=== PATIENT | male | born 1950 | race Caucasian/White ===

== ENCOUNTER → 2016-08-12 | Outpatient (REF) | payer OTHER ==
[~2016-08-12] MED LIST: /WARF5TA PO; CENTTAB47 PO; COUM7.5T PO; OMEP40CA2 PO; PERC7.5T12 PO; RAMI5CAP PO; SIMV40TA2 PO; TYLE325T5 PO
[2016-08-13 10:57] LABS: PRETREATED FOLATE FOR RBCFOL 7.7 NG/ML
== END ==
LOC: M LAB REF 13:11
PROVIDERS: ATTEND Nurse Practitioner Adult Health
DX: E83.110 Hereditary hemochromatosis (principal); K75.81 Nonalcoholic steatohepatitis (NASH)

== ENCOUNTER 2018-02-23 11:12 | Day surgery (SDC) | payer BC, OTHER ==
[2018-02-23] MEDS: NS 1,000 ML IV (06:00)
[2018-02-23] MEDS ORDERED: PROPOFOL 200 MG/20 ML VIAL As Ordered ×2 (11:50)
[2018-02-23] MEDS ORDERED: LIDOCAINE 2% INJ 100 MG/5 ML SDV (FOR ANES.) As Ordered (11:50)
== END 2018-02-23 13:14 | disposition home or self-care (01) ==
LOC: M OPP 11:12
DX: Z12.11 Encounter for screening for malignant neoplasm of colon (principal); Z86.010 Personal history of colon polyps; K64.0 First degree hemorrhoids; K57.30 Diverticulosis of large intestine without perforation or abscess without bleeding; R12 Heartburn; K22.8 Other specified diseases of esophagus; K44.9 Diaphragmatic hernia without obstruction or gangrene; I10 Essential (primary) hypertension; E78.00 Pure hypercholesterolemia, unspecified; R73.03 Prediabetes; K21.9 Gastro-esophageal reflux disease without esophagitis; M19.90 Unspecified osteoarthritis, unspecified site; Z96.643 Presence of artificial hip joint, bilateral; Z91.048 Other nonmedicinal substance allergy status; Z79.84 Long term (current) use of oral hypoglycemic drugs; Z79.899 Other long term (current) drug therapy; Z80.0 Family history of malignant neoplasm of digestive organs; Z87.891 Personal history of nicotine dependence
CPT/HCPCS: G0105

== ENCOUNTER 2018-04-22 07:26 | Day surgery (SDC) | payer BC, OTHER ==
[~2018-04-22] VITALS: Ht 177.8 cm; Wt 113.4 kg
[~2018-04-22 07:26] MED LIST changes: +LIVA1TAB PO; +METF500T13 PO; +METO1TAB7 PO; +NS 1,000 ML IV ONE; +RAMI1CAP24 PO
[2018-04-22] MEDS ORDERED: PROPOFOL 200 MG/20 ML VIAL As Ordered ONE (08:35)
[2018-04-22] MEDS ORDERED: LIDOCAINE 2% INJ 100 MG/5 ML SDV (FOR ANES.) As Ordered ONE (08:35)
[2018-04-22] MEDS ORDERED: fentaNYL 100 MCG/2 ML INJECTION (J3010) As Ordered ONE (08:36)
--- NOTE | 2018-04-22 09:03 | ROOR ---
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 Procedure: Pre-Anesthesia Assessment: - The heart rate, respiratory rate, oxygen saturations, blood pressure, adequacy of pulmonary ventilation, and response to care were monitored throughout the procedure. The Endoscope was introduced through the mouth, and advanced to the second part of duodenum. The upper GI endoscopy was accomplished without difficulty. The patient tolerated the procedure well. Findings: The Z-line was irregular and was found 40 cm from the incisors. Focal radiofrequency ablation of Gabriel's esophagus was performed. With the endoscope in place, the position and extent of the Gabriel's mucosa and the anatomic landmarks including proximal and distal extent of Gabriel's mucosa were noted. Endoscopic visualization identified an ablation site including the entire visible Gabriel's segment. Gastric contents were suctioned. The endoscope was then removed from the patient. The Barrx-90 Ultra radiofrequency ablation catheter was attached to the tip of the endoscope. The endoscope with the attached radiofrequency ablation catheter was then passed transorally under direct vision into the esophagus and advanced to the areas of Gabriel's mucosa. The areas included circumferential areas of Gabriel's mucosa. The radiofrequency ablation catheter was placed in contact with the surface of the Gabriel's mucosa under direct visualization and energy was applied twice at 10 J/cm2. Ablation was repeated in a likewise fashion to all visible Gabriel's mucosa. The ablation zone was cleaned of coagulative debris. A second round of ablation was then performed. Energy was applied twice at 12 J/cm2 to retreat the areas of Gabriel's epithelium that had been treated with the first series of ablation. The areas of the esophagus where Gabriel's mucosa had been ablated were examined. Areas of visible Gabriel's esophagus were completely ablated. A medium-sized hiatal hernia was present. No other significant abnormalities were identified in a careful examination of the stomach. The exam of the duodenum was otherwise normal. Impression: - Z-line irregular, 40 cm from the incisors. Treated with radiofrequency ablation. - Medium-sized hiatal hernia. - No specimens collected. - The examination was otherwise normal. Recommendation: - Patient has a contact number available for emergencies. The signs and symptoms of potential delayed complications were discussed with the patient. Return to normal activities tomorrow. Written discharge instructions were provided to the patient. - Discharge patient to home. - Follow an antireflux regimen. - Full liquid diet for 2 days, then advance as tolerated to soft diet for 2 days. - Continue present medications. - Return to my office in 2 months. - The findings and recommendations were discussed with the patient's family. Bryan Menendez MD Bryan Menendez MD 04/22/2018 9:03:27 AM This report has been signed electronically. Number of Addenda: 0 Note Initiated On: 04/22/2018 8:40 AM Estimated Blood Loss: Estimated blood loss: none.
[2018-04-22 09:22] VITALS: BP 176/99
== END 2018-04-22 09:29 | disposition home or self-care (01) ==
LOC: M OPP 07:26
PROVIDERS: ATTEND Internal Medicine Gastroenterology
DX: K22.711 Barrett's esophagus with high grade dysplasia (principal); K22.8 Other specified diseases of esophagus; K44.9 Diaphragmatic hernia without obstruction or gangrene; I10 Essential (primary) hypertension; E11.9 Type 2 diabetes mellitus without complications; M12.9 Arthropathy, unspecified; Z79.84 Long term (current) use of oral hypoglycemic drugs; Z79.899 Other long term (current) drug therapy; Z91.048 Other nonmedicinal substance allergy status; Z96.643 Presence of artificial hip joint, bilateral
CPT/HCPCS: 43270; J3010

== ENCOUNTER 2018-07-08 10:25 | Day surgery (SDC) | payer BC, OTHER ==
[~2018-07-08] VITALS: Ht 177.8 cm; Wt 112.9 kg
[2018-07-08] MEDS ORDERED: LIDOCAINE 2% INJ 100 MG/5 ML SDV (FOR ANES.) As Ordered ONE (13:03)
[2018-07-08] MEDS ORDERED: PROPOFOL 200 MG/20 ML VIAL As Ordered ONE ×2 (13:03→13:25)
--- NOTE | 2018-07-08 13:31 | ROOR ---
Patient Name: Randal Duke Procedure Date: 07/08/2018 1:15 PM Date of : 1950 Age: 68 Room: [facility] Gender: Male Note Status: Finalized Procedure: Upper Endoscopy + Biopsies Indications: Follow-up of Gabriel's esophagus, Gabriel's high grade dysplasia Providers: Bryan Menendez MD Referring MD: Morenita Valadez NP Requesting Provider: Medicines: Monitored Anesthesia Care Complications: No immediate complications. Procedure: Pre-Anesthesia Assessment: - The heart rate, respiratory rate, oxygen saturations, blood pressure, adequacy of pulmonary ventilation, and response to care were monitored throughout the procedure. The Endoscope was introduced through the mouth, and advanced to the second part of duodenum. The upper GI endoscopy was accomplished without difficulty. The patient tolerated the procedure well. Findings: The Z-line was regular and was found 40 cm from the incisors. Multiple biopsies were obtained with cold forceps for evaluation to rule out Gabriel's Esophagus randomly at the gastroesophageal junction. A small hiatal hernia was present. No other significant abnormalities were identified in a careful examination of the stomach. The exam of the duodenum was otherwise normal. Impression: - Z-line regular, 40 cm from the incisors. - Small hiatal hernia. - Multiple biopsies were obtained at the gastroesophageal junction. - The examination was otherwise normal. Recommendation: - Patient has a contact number available for emergencies. The signs and symptoms of potential delayed complications were discussed with the patient. Return to normal activities tomorrow. Written discharge instructions were provided to the patient. - Resume previous diet. - Discharge patient to home. - Continue present medications. - Await pathology results. - Telephone GI clinic for pathology results in 1 week. - Repeat upper endoscopy for surveillance based on pathology results. - The findings and recommendations were discussed with the patient's family. Bryan Menendez MD Bryan Menendez MD 07/08/2018 1:31:04 PM This report has been signed electronically. Number of Addenda: 0 Note Initiated On: 07/08/2018 1:15 PM Estimated Blood Loss: Estimated blood loss: none.
[2018-07-08 14:03] VITALS: BP 142/91
== END 2018-07-08 14:05 | disposition home or self-care (01) ==
LOC: M OPP 10:25
PROVIDERS: ATTEND Internal Medicine Gastroenterology
DX: K22.711 Barrett's esophagus with high grade dysplasia (principal); K44.9 Diaphragmatic hernia without obstruction or gangrene; E11.9 Type 2 diabetes mellitus without complications; R12 Heartburn; Z91.09 Other allergy status, other than to drugs and biological substances; Z79.84 Long term (current) use of oral hypoglycemic drugs; Z79.899 Other long term (current) drug therapy

== ENCOUNTER → 2018-07-20 | Outpatient (REF) | payer OTHER ==
[~2018-07-20] MED LIST changes: -NS 1,000 ML IV ONE
[2018-07-20 14:00] LABS: FERRITIN 251 NG/ML (26-388); IRON (FE) 161 UG/DL (65-175)
== END ==
LOC: M LAB REF 12:34
PROVIDERS: ATTEND Nurse Practitioner Adult Health
DX: E83.110 Hereditary hemochromatosis (principal)

== ENCOUNTER 2018-09-07 09:57 | Day surgery (SDC) | payer BC, OTHER ==
[~2018-09-07] VITALS: Ht 177.8 cm; Wt 115.2 kg
[~2018-09-07 09:57] MED LIST changes: -/WARF5TA PO; +COUM1TAB17 PO; +NS 1,000 ML IV ONE
[2018-09-07] MEDS ORDERED: PROPOFOL 200 MG/20 ML VIAL As Ordered ONE (10:36)
[2018-09-07] MEDS ORDERED: LIDOCAINE 2% INJ 100 MG/5 ML SDV (FOR ANES.) As Ordered ONE (10:38)
[2018-09-07] MEDS ORDERED: fentaNYL 100 MCG/2 ML INJECTION (J3010) As Ordered ONE (11:32)
--- NOTE | 2018-09-07 11:51 | ROOR ---
Patient Name: Randal Duke Procedure Date: 09/07/2018 11:29 AM Date of : 1950 Age: 68 Room: [facility] Gender: Male Note Status: Finalized Procedure: Egd + Halo Indications: For therapy of Gabriel's esophagus Providers: Bryan Menendez MD Referring MD: Morenita Valadez NP Requesting Provider: Medicines: Monitored Anesthesia Care Complications: No immediate complications. Procedure: Pre-Anesthesia Assessment: - The heart rate, respiratory rate, oxygen saturations, blood pressure, adequacy of pulmonary ventilation, and response to care were monitored throughout the procedure. The Endoscope was introduced through the mouth, and advanced to the second part of duodenum. The upper GI endoscopy was accomplished without difficulty. The patient tolerated the procedure well. Findings: The Z-line was variable and was found 40 cm from the incisors. Focal radiofrequency ablation of Gabriel's esophagus was performed. With the endoscope in place, the position and extent of the Gabriel's mucosa and the anatomic landmarks including top of gastric folds and crural pinch were noted. Endoscopic visualization identified an ablation site including the entire visible Gabriel's segment. The Gabriel's mucosa was irrigated with water. Gastric contents were suctioned. The endoscope was then removed from the patient. The Barrx-90 Ultra radiofrequency ablation catheter was attached to the tip of the endoscope. The endoscope with the attached radiofrequency ablation catheter was then passed transorally under direct vision into the esophagus and advanced to the areas of Gabriel's mucosa. The areas included circumferential areas of Gabriel's mucosa. The radiofrequency ablation catheter was placed in contact with the surface of the Gabriel's mucosa under direct visualization and energy was applied twice at 12 J/cm2. Ablation was repeated in a likewise fashion to treat the entire area of suspected Gabriel's mucosa. The ablation zone was cleaned of coagulative debris. A second round of ablation was then performed. Energy was applied twice at 12 J/cm2 to retreat the areas of Gabriel's epithelium that had been treated with the first series of ablation. The areas of the esophagus where Gabriel's mucosa had been ablated were examined. Areas of visible Gabriel's esophagus were completely ablated. A medium-sized hiatal hernia was present. No other significant abnormalities were identified in a careful examination of the stomach. The exam of the duodenum was otherwise normal. Impression: - Z-line variable, 40 cm from the incisors. Treated with radiofrequency ablation. - Medium-sized hiatal hernia. - No specimens collected. - The examination was otherwise normal. Recommendation: - Patient has a contact number available for emergencies. The signs and symptoms of potential delayed complications were discussed with the patient. Return to normal activities tomorrow. Written discharge instructions were provided to the patient. - Discharge patient to home. - Full liquid diet for 2 days, then advance as tolerated to soft diet for 2 days. - Continue present medications. - Return to GI office in 2 months. - The findings and recommendations were discussed with the patient's family. Bryan Menendez MD Bryan Menendez MD 09/07/2018 11:50:32 AM Electronically signed by Bryan Menendez MD Number of Addenda: 0 Note Initiated On: 09/07/2018 11:29 AM Estimated Blood Loss: Estimated blood loss: none.
[2018-09-07 12:05] VITALS: BP 150/87
== END 2018-09-07 12:13 | disposition home or self-care (01) ==
LOC: M OPP 09:57
PROVIDERS: ATTEND Internal Medicine Gastroenterology
DX: K22.70 Barrett's esophagus without dysplasia (principal); K44.9 Diaphragmatic hernia without obstruction or gangrene; K22.8 Other specified diseases of esophagus
CPT/HCPCS: 43270; J3010

== ENCOUNTER 2018-12-16 06:53 | Day surgery (SDC) | payer BC, OTHER ==
[~2018-12-16] VITALS: Ht 177.8 cm; Wt 113.4 kg
[2018-12-16] MEDS ORDERED: PROPOFOL 200 MG/20 ML VIAL As Ordered ONE ×2 (07:04→07:06)
[2018-12-16] MEDS ORDERED: LIDOCAINE 2% INJ 100 MG/5 ML SDV (FOR ANES.) As Ordered ONE (07:06)
[2018-12-16] MEDS ORDERED: fentaNYL 100 MCG/2 ML INJECTION (J3010) As Ordered ONE (07:49)
--- NOTE | 2018-12-16 08:29 | ROOR ---
Patient Name: Randal Duke Procedure Date: 12/16/2018 8:11 AM Date of : 1950 Age: 68 Room: [facility] Gender: Male Note Status: Finalized Procedure: Upper Endoscopy + Biopsies Indications: Heartburn, Exclusion of Gabriel's esophagus, Follow-up of Gabriel's esophagus Providers: Bryan Menendez MD Referring MD: Morenita Valadez NP Requesting Provider: Medicines: Monitored Anesthesia Care Complications: No immediate complications. Procedure: Pre-Anesthesia Assessment: - The heart rate, respiratory rate, oxygen saturations, blood pressure, adequacy of pulmonary ventilation, and response to care were monitored throughout the procedure. The Endoscope was introduced through the mouth, and advanced to the second part of duodenum. The upper GI endoscopy was accomplished without difficulty. The patient tolerated the procedure well. Findings: The Z-line was irregular and was found 40 cm from the incisors. Multiple biopsies were obtained with cold forceps for evaluation to rule out Gabriel's Esophagus randomly at the gastroesophageal junction. A medium-sized hiatal hernia was present. No other significant abnormalities were identified in a careful examination of the stomach. The exam of the duodenum was otherwise normal. Impression: - Z-line irregular, 40 cm from the incisors. - Medium-sized hiatal hernia. - Multiple biopsies were obtained at the gastroesophageal junction. - The examination was otherwise normal. Recommendation: - Patient has a contact number available for emergencies. The signs and symptoms of potential delayed complications were discussed with the patient. Return to normal activities tomorrow. Written discharge instructions were provided to the patient. - High fiber diet. - Discharge patient to home. - Follow an antireflux regimen. - Continue present medications. - Await pathology results. - Telephone GI clinic for pathology results in 1 week. - Return to referring physician. - The findings and recommendations were discussed with the patient's family. Bryan Menendez MD Bryan Menendez MD 12/16/2018 8:29:21 AM Electronically signed by Bryan Menendez MD Number of Addenda: 0 Note Initiated On: 12/16/2018 8:11 AM Estimated Blood Loss: Estimated blood loss: none.
[2018-12-16 08:50] VITALS: BP 144/99
== END 2018-12-16 08:56 | disposition home or self-care (01) ==
LOC: M OPP 06:53
PROVIDERS: ATTEND Internal Medicine Gastroenterology
DX: K22.70 Barrett's esophagus without dysplasia (principal); K22.8 Other specified diseases of esophagus; K44.9 Diaphragmatic hernia without obstruction or gangrene; I10 Essential (primary) hypertension; E78.5 Hyperlipidemia, unspecified; K21.9 Gastro-esophageal reflux disease without esophagitis; Z96.641 Presence of right artificial hip joint; Z87.891 Personal history of nicotine dependence; Z91.048 Other nonmedicinal substance allergy status; Z79.899 Other long term (current) drug therapy; Z79.84 Long term (current) use of oral hypoglycemic drugs
CPT/HCPCS: 43239; 88305; J3010

== ENCOUNTER → 2019-09-24 | Outpatient (CLI) | payer BC, OTHER ==
[~2019-09-24] MED LIST changes: -NS 1,000 ML IV ONE; +OMEP40CA97 PO
== END ==
LOC: M LABSMTC 10:10
PROVIDERS: ATTEND Anesthesiology
DX: Z01.818 Encounter for other preprocedural examination (principal); Z11.59 Encounter for screening for other viral diseases
CPT/HCPCS: C9803; U0003

== ENCOUNTER 2019-09-27 10:30 | Day surgery (SDC) | payer BC, OTHER ==
[~2019-09-27] VITALS: Ht 177.8 cm; Wt 115.7 kg
[~2019-09-27 10:30] MED LIST changes: +NS 1,000 ML IV ONE
[2019-09-27] MEDS ORDERED: LIDOCAINE 2% 100MG/5ML SDV (FOR ANES.) As Ordered ONE (12:05)
[2019-09-27] MEDS ORDERED: propofoL 200 MG/20 ML VIAL As Ordered ONE (12:05)
--- NOTE | 2019-09-27 12:17 | ROOR ---
Patient Name: Randal Duke Procedure Date: 09/27/2019 11:59 AM Date of : 1950 Age: 69 Room: [facility] Gender: Male Note Status: Finalized Procedure: Upper Endoscopy + Biopsies Indications: Heartburn, Follow-up of previous ablation treatment of Gabriel's esophagus, Surveillance after eradication of Gabriel's esophagus Providers: Bryan Menendez MD Referring MD: Morenita Valadez NP Requesting Provider: Medicines: Monitored Anesthesia Care Complications: No immediate complications. Procedure: Pre-Anesthesia Assessment: - The heart rate, respiratory rate, oxygen saturations, blood pressure, adequacy of pulmonary ventilation, and response to care were monitored throughout the procedure. The Endoscope was introduced through the mouth, and advanced to the second part of duodenum. The upper GI endoscopy was accomplished without difficulty. The patient tolerated the procedure well. Findings: The Z-line was variable and was found 35 cm from the incisors. Multiple biopsies were obtained with cold forceps for evaluation to rule out Gabriel's Esophagus randomly at the gastroesophageal junction. A small hiatal hernia was present. No other significant abnormalities were identified in a careful examination of the stomach. The exam of the duodenum was otherwise normal. Impression: - Z-line variable, 35 cm from the incisors. - Small hiatal hernia. - Multiple biopsies were obtained at the gastroesophageal junction. - The examination was otherwise normal. Recommendation: - Patient has a contact number available for emergencies. The signs and symptoms of potential delayed complications were discussed with the patient. Return to normal activities tomorrow. Written discharge instructions were provided to the patient. - High fiber diet. - Discharge patient to home. - Follow an antireflux regimen. - Continue present medications. - Await pathology results. - Telephone GI clinic for pathology results in 1 week. - Return to referring physician. - The findings and recommendations were discussed with the patient's family. Bryan Menendez MD Bryan Menendez MD 09/27/2019 12:17:11 PM Electronically signed by Bryan Menendez MD Number of Addenda: 0 Note Initiated On: 09/27/2019 11:59 AM Estimated Blood Loss: Estimated blood loss: none.
[2019-09-27 12:38] VITALS: BP 144/79
== END 2019-09-27 12:49 | disposition home or self-care (01) ==
LOC: M OPP 10:30
PROVIDERS: ATTEND Internal Medicine Gastroenterology
DX: K22.8 Other specified diseases of esophagus (principal); K44.9 Diaphragmatic hernia without obstruction or gangrene; K22.70 Barrett's esophagus without dysplasia; R12 Heartburn; E11.9 Type 2 diabetes mellitus without complications; Z09 Encounter for follow-up examination after completed treatment for conditions other than malignant neoplasm; Z79.84 Long term (current) use of oral hypoglycemic drugs; Z79.899 Other long term (current) drug therapy; Z91.048 Other nonmedicinal substance allergy status

== ENCOUNTER → 2019-12-23 | Outpatient (REF) | payer MEDICARE, OTHER ==
[~2019-12-23] MED LIST changes: -NS 1,000 ML IV ONE
[2020-01-26 13:04] LABS: SOURCE, BODY FLUID LFT KNEE; SYNOVIAL FLUID COLOR YELLOW (YELLOW)
[2020-01-26 13:08] LABS: CRYSTALS, BODY FLUID CA PYROPHOSPHATE (NONE SEEN); SOURCE, BODY FLUID CRYSTALS LFT KNEE
[2020-02-07 13:57] LABS: BODY FLUID RHEUMATOID SCREEN NEGATIVE (NEGATIVE); SOURCE, BODY FLUID GLUCOSE LFT KNEE
[2020-02-07 13:58] LABS: MUCIN CLOT TEST 4+ (4+)
== END ==
LOC: M LAB REF 12:05
PROVIDERS: ATTEND Orthopaedic Surgery
DX: M25.462 Effusion, left knee (principal)

== ENCOUNTER → 2019-12-24 | Outpatient (REF) | payer MEDICARE, OTHER ==
[2020-02-01 11:47] LABS: Lyme Disease IgG/IgM Antibodie See Separate Report
[2020-02-18 16:27] LABS: C REACTIVE PROTEIN QUANTITATIV 0.4 MG/DL (0.00-0.30); URIC ACID 5.6 MG/DL (3.5-7.2)
== END ==
LOC: M LAB REF 07:28
PROVIDERS: ATTEND Registered Nurse
DX: M17.12 Unilateral primary osteoarthritis, left knee (principal)

== ENCOUNTER → 2021-02-27 | Outpatient (REF) | payer MEDICARE, OTHER ==
[~2021-02-27] MED LIST changes: +OMEP40CA4 PO; -OMEP40CA97 PO
[2021-02-27 17:38] LABS: FERRITIN 258 NG/ML (26-388); IRON (FE) 123 UG/DL (65-175)
== END ==
LOC: M LAB REF 16:17
PROVIDERS: ATTEND Nurse Practitioner Adult Health
DX: E83.110 Hereditary hemochromatosis (principal)

== ENCOUNTER → 2021-12-19 | Outpatient (CLI) | payer MEDICARE, BC, OTHER | LOC: M LABSMTC 10:03 | PROVIDERS: ATTEND Internal Medicine Gastroenterology | DX: Z11.52 Encounter for screening for COVID-19 (principal) ==

== ENCOUNTER 2021-12-24 11:48 | Day surgery (SDC) | payer MEDICARE, BC, OTHER ==
[~2021-12-24] VITALS: Ht 177.8 cm; Wt 114.2 kg
[~2021-12-24 11:48] MED LIST changes: +NS 1,000 ML IV ONE
[2021-12-24] MEDS ORDERED: propofoL 500 MG/50 ML VIAL As Ordered ONE (12:48)
[2021-12-24] MEDS ORDERED: fentaNYL 100 MCG/2 ML INJECTION As Ordered ONE (12:50)
[2021-12-24] MEDS ORDERED: LIDOCAINE 2% 100MG/5ML SDV (FOR ANES.) As Ordered ONE (12:51)
[2021-12-24 14:56] VITALS: BP 162/81
== END 2021-12-24 15:00 | disposition home or self-care (01) ==
LOC: M OPP 11:48
PROVIDERS: ATTEND Internal Medicine Gastroenterology
DX: Z12.11 Encounter for screening for malignant neoplasm of colon (principal); Z86.010 Personal history of colon polyps; K63.5 Polyp of colon; K57.30 Diverticulosis of large intestine without perforation or abscess without bleeding; K64.0 First degree hemorrhoids; K29.70 Gastritis, unspecified, without bleeding; K22.89 Other specified disease of esophagus; K22.719 Barrett's esophagus with dysplasia, unspecified; Z09 Encounter for follow-up examination after completed treatment for conditions other than malignant neoplasm; K44.9 Diaphragmatic hernia without obstruction or gangrene; I10 Essential (primary) hypertension; E11.9 Type 2 diabetes mellitus without complications; E78.00 Pure hypercholesterolemia, unspecified; Z79.02 Long term (current) use of antithrombotics/antiplatelets; Z79.84 Long term (current) use of oral hypoglycemic drugs; Z79.899 Other long term (current) drug therapy; Z91.048 Other nonmedicinal substance allergy status
CPT/HCPCS: 43239; 45385; 88305; J3010

== ENCOUNTER → 2022-06-03 | Outpatient (REF) | payer MEDICARE, BC, OTHER ==
[~2022-06-03] MED LIST changes: -NS 1,000 ML IV ONE
[2022-06-03 17:16] LABS: PERCENT SATURATION 24.2 % (19.7-50.0)
[2022-06-03 17:24] LABS: HEMATOCRIT 44.3 % (42.0-52.0)
[2022-06-06 13:35] LABS: FERRITIN 174.2 NG/ML (10.5-307.3)
== END ==
LOC: M LAB REF 16:23
PROVIDERS: ATTEND Internal Medicine
DX: K76.0 Fatty (change of) liver, not elsewhere classified (principal); E83.110 Hereditary hemochromatosis; R94.5 Abnormal results of liver function studies

== ENCOUNTER → 2022-11-06 | Outpatient (REF) | payer MEDICARE, BC, OTHER ==
[2022-11-06 18:31] LABS: FERRITIN 159.6 NG/ML (10.5-307.3)
== END ==
LOC: M LAB REF 16:19
PROVIDERS: ATTEND Nurse Practitioner Adult Health
DX: E83.110 Hereditary hemochromatosis (principal); K76.0 Fatty (change of) liver, not elsewhere classified

== ENCOUNTER → 2022-12-03 | Outpatient (CLI) | payer MEDICARE, BC, OTHER ==
[~2022-12-03] MED LIST changes: +PROHANCE 279.3MG/ML 15ML VIAL ONE; +PROHANCE 279.3MG/ML 5ML VIAL ONE
== END ==
LOC: M PLAIMG 08:24
PROVIDERS: ATTEND Nurse Practitioner Adult Health
DX: R94.5 Abnormal results of liver function studies (principal); K76.0 Fatty (change of) liver, not elsewhere classified
CPT/HCPCS: 74183; A9576

== ENCOUNTER → 2023-06-25 | Outpatient (REF) | payer MEDICARE, BC, OTHER ==
[~2023-06-25] MED LIST changes: -PROHANCE 279.3MG/ML 15ML VIAL ONE; -PROHANCE 279.3MG/ML 5ML VIAL ONE
[2023-06-25 18:24] LABS: HEMATOCRIT 42.9 % (42.0-52.0)
[2023-06-25 18:54] LABS: PERCENT SATURATION 42.5 % (19.7-50.0)
[2023-06-25 18:56] LABS: FERRITIN 201.6 NG/ML (10.5-307.3)
== END ==
LOC: M LAB REF 17:37
PROVIDERS: ATTEND Nurse Practitioner Adult Health
DX: E83.110 Hereditary hemochromatosis (principal)

== ENCOUNTER → 2024-02-18 | Outpatient (REF) | payer MEDICARE, BC, OTHER ==
[~2024-02-18] MED LIST changes: -RAMI1CAP24 PO; +RAMI5CAP60 PO
[2024-02-18 13:46] LABS: HEMATOCRIT 44.4 % (42.0-52.0)
[2024-02-18 14:08] LABS: FERRITIN 113.7 NG/ML (10.5-307.3)
== END ==
LOC: M LAB REF 13:01
PROVIDERS: ATTEND Nurse Practitioner Adult Health
DX: E83.110 Hereditary hemochromatosis (principal)

== ENCOUNTER 2024-06-14 11:14 | Day surgery (SDC) | payer MEDICARE, BC ==
[~2024-06-14] VITALS: Ht 177.8 cm; Wt 109.8 kg
[~2024-06-14 11:14] MED LIST changes: +LOSA100T46 PO; +METO1TAB33 PO; +OMEP-173 PO; +SEMA2PEN PO
[2024-06-14] MEDS ORDERED: fentaNYL 100 MCG/2 ML INJECTION As Ordered ONE (12:05)
[2024-06-14] MEDS ORDERED: LIDOCAINE 2% 100MG/5ML SDV (FOR ANES.) As Ordered ONE (12:05)
[2024-06-14] MEDS ORDERED: propofoL 500 MG/50 ML VIAL As Ordered ONE (12:06)
[2024-06-14 13:13] VITALS: TEMP 97.1
[2024-06-14 13:34] VITALS: BP 126/69; O2SAT 94
== END 2024-06-14 13:41 | disposition home or self-care (01) ==
LOC: M OPP 11:14
PROVIDERS: ATTEND Internal Medicine Gastroenterology
DX: D12.6 Benign neoplasm of colon, unspecified (principal); Z86.0100 Personal history of colon polyps, unspecified; K64.0 First degree hemorrhoids; K57.30 Diverticulosis of large intestine without perforation or abscess without bleeding; K22.89 Other specified disease of esophagus; K44.9 Diaphragmatic hernia without obstruction or gangrene; I10 Essential (primary) hypertension; E78.00 Pure hypercholesterolemia, unspecified; R73.03 Prediabetes; M19.90 Unspecified osteoarthritis, unspecified site; Z91.048 Other nonmedicinal substance allergy status; Z79.84 Long term (current) use of oral hypoglycemic drugs; Z79.85 Long-term (current) use of injectable non-insulin antidiabetic drugs; Z79.899 Other long term (current) drug therapy
CPT/HCPCS: 43239; 45385; 88305; J3010

== ENCOUNTER → 2024-09-23 | Outpatient (REF) | payer MEDICARE, BC | LOC: M LAB REF 12:57 | PROVIDERS: ATTEND Nurse Practitioner Adult Health | DX: E83.110 Hereditary hemochromatosis (principal) ==